=== PATIENT | female | born 1975 | race Caucasian/White ===

== ENCOUNTER 2018-12-03 07:51 | Outpatient (CLI) | payer BC | END 2018-12-03 07:52 | disposition home or self-care (01) | LOC: C.PAT 07:51 | DX: D21.9 Benign neoplasm of connective and other soft tissue, unspecified (principal) ==

== ENCOUNTER 2018-12-19 07:45 | Inpatient (IN) | payer BC ==
[2018-12-03 08:25] VITALS: BMI 27.4
[2018-12-19] MEDS ORDERED: Vasopressin 20 Units/ml Inj ONE (10:32)
[2018-12-19] MEDS ORDERED: ceFAZolin 1 gm in NS 2 GM/200 ML BAG IVPB ONE (10:33)
[2018-12-19] MEDS ORDERED: Midazolam 2 MG/2 ML VIAL ONE (10:37)
[2018-12-19] MEDS ORDERED: Propofol 10 mg/ml Inj (20 ML) ONE (10:37)
[2018-12-19] MEDS ORDERED: Succinylcholine Chloride 20 mg/ml Syr (5 ml) IV ONE (11:57)
[2018-12-19] MEDS ORDERED: Rocuronium 10 mg/ml (5 ml) ONE (11:57)
[2018-12-19] MEDS ORDERED: Lidocaine Hydrochloride 5 ML INJ ONE (11:57)
[2018-12-19] MEDS ORDERED: Neostigmine 1:1000 (1 mg/ml) Inj ONE (12:01)
[2018-12-19] MEDS ORDERED: Oxycodone/Acetaminophen 5/325 mg Tab PO PRN ×2 (12:26)
[2018-12-19] MEDS ORDERED: Lactated Ringer's 1,000 ML IV SCH (12:30)
--- NOTE | 2018-12-19 12:31 | PCM.SURG1 ---
Surgeon's Initial Post Op Note - Surgeon's Notes Surgeon: Rupal Love MD Child Development Director: Dmitry Lopez MD Type of Anesthesia: General Endo Pre-Operative Diagnosis: Pelvic Pain, Sympoamtic fibroids uteurs, pelvic prssure, abnromal uteirne bleeidng, anemia Operative Findings: Enlarged 24 week size enlarged uteurs, with funal myoma with base entering cavity, cesar appearing uteurs, tubes and ovaries, uteurs 8-10 week size. uterus rotated due ot enldraged myoma. no adhesions. geeta drain, vasopressing applied. Dr Tommy Lopez was surigcla assitance was presnt ofr entire case and essential in gaining entry, retraciotn, epxourse, hloidng bladder blade, obtiaign hemotasis, dissection, removal of specin and closing all layers. Post-Operative Diagnosis: same as above Operation Performed: Exploratory laparatomy, abodminla momecotmy Specimen/Specimens Removed: Leiomyoma (multiple) Estimated Blood Loss: EBL {In ML}: 150 Blood Products Given: N/A Drains Used: No Drains Post-Op Condition: Good Date of Surgery/Procedure: 12/19/18 Time of Surgery/Procedure: 11:00
[2018-12-19 13:00] LABS: BASO # 0.1 K/uL (0.0-0.2); BASO % 0.5 % (0.0-2.0); EOS # 0.2 K/uL (0.0-0.7); EOS % 1.7 % (0.0-4.0); LYMPH # 2.6 K/uL (1.0-4.3); LYMPH % 19.1 % (20.0-40.0); MEAN CELL VOLUME 85.3 fL (81.0-99.0); MEAN CORPUSCULAR HEMOGLOBIN 28.3 pg (27.0-31.0); MEAN CORPUSCULAR HGB CONC 33.2 g/dL (33.0-37.0); MEAN PLATELET VOLUME 8.6 fL (7.2-11.7); MONO # 0.4 K/uL (0.0-0.8); MONO % 2.6 % (0.0-10.0); NEUT # 10.4 K/uL (1.8-7.0); NEUT % 76.1 % (50.0-75.0); RBC 4.59 Mil/uL (3.80-5.20); RED CELL DISTRIBUTION WIDTH 15.2 % (11.5-14.5)
[2018-12-19 13:03] LABS: WHITE BLOOD COUNT 13.7 K/uL (4.8-10.8)
[2018-12-19 13:10] LABS: ALB/GLOB RATIO 1.3 (1.0-2.1); ALBUMIN 4.2 g/dL (3.5-5.0); ALT/SGPT 15 U/L (9-52); AST/SGOT 16 U/L (14-36); BLOOD UREA NITROGEN 15 mg/dL (7-17); GFR NON-AFRICAN AMERICAN > 60
[2018-12-19] MEDS: HYDROmorphone 0.5 mg/0.5 ml ISec IVP PRN ×2 (13:14→14:46)
[2018-12-19] MEDS ORDERED: Lactated Ringer's 1,000 ML IV ONE (16:30)
[2018-12-19] MEDS: cefOXitin 1 GM in Sodium Chloride 0.9% 100 ML IVPB SCH (19:00)
[2018-12-20] MEDS: cefOXitin 1 GM in Sodium Chloride 0.9% 100 ML IVPB SCH ×2 (03:00→10:00)
--- NOTE | 2018-12-20 08:03 | CP.PCM.PN ---
Subjective - Date & Time of Evaluation Date of Evaluation: 12/20/18 Time of Evaluation: 08:00 - Subjective Subjective: pt seen and examiend reports pain controlled with medcain, pt out of bed to charir, not yet voiding or ambulating. pt deneis any fver, chills, nause, vomiting, toelrating clears, no vaginal bleeding. Objective - Vital Signs/Intake and Output Vital Signs (last 24 hours): Temp Pulse Resp BP Pulse Ox 99.2 F 93 H 20 116/69 97 12/20/18 04:00 12/20/18 04:00 12/20/18 04:00 12/20/18 04:00 12/20/18 04:00 Intake and Output: 12/20/18 12/20/18 06:59 18:59 Intake Total 1700 Output Total 1000 Balance 700 - Medications Medications: Current Medications Cefoxitin Sodium 1 gm/ Sodium (Chloride) 100 mls @ 100 mls/hr IVPB Q8H [facility]; Protocol Stop: 12/20/18 10:59 Last Admin: 12/20/18 03:00 Dose: 100 mls/hr Lactated Ringer's (Lactated Ringer's) 1,000 mls @ 125 mls/hr IV .Q8H [facility] Last Admin: 12/20/18 03:30 Dose: 125 mls/hr Indomethacin (Indocin) 25 mg PO TID [facility] Last Admin: 12/20/18 05:00 Dose: 25 mg Ondansetron HCl (Zofran Inj) 4 mg IVP ONCE PRN PRN Reason: Nausea/Vomiting Oxycodone/Acetaminophen (Percocet 5/325 Mg Tab) 1 tab PO Q4H PRN PRN Reason: Pain, moderate (4-7) Stop: 12/22/18 12:27 Oxycodone/Acetaminophen (Percocet 5/325 Mg Tab) 2 tab PO Q4H PRN PRN Reason: Pain, severe (8-10) Stop: 12/22/18 12:27 Last Admin: 12/20/18 03:21 Dose: 2 tab - Labs Labs: 12/19/18 12:56 12/19/18 12:56 - Constitutional Appears: Well, Non-toxic - Head Exam Head Exam: ATRAUMATIC, NORMAL INSPECTION - Eye Exam Eye Exam: EOMI - ENT Exam ENT Exam: Mucous Membranes Moist, Normal Exam - Neck Exam Neck Exam: Normal Inspection - Respiratory Exam Respiratory Exam: Clear to Ausculation Bilateral, NORMAL BREATHING PATTERN - Cardiovascular Exam Cardiovascular Exam: REGULAR RHYTHM, +S1, +S2 - GI/Abdominal Exam GI & Abdominal Exam: Soft, Normal Bowel Sounds Additional comments: appropriately ttp, no guarding no reboudn tendneress, no rigidity, +BS no vaginal bleeding inciscion c/d/i - Extremities Exam Extremities Exam: Full ROM, Normal Capillary Refill, Normal Inspection. absent: Calf Tenderness, Joint Swelling, Pedal Edema, Tenderness - Back Exam Back Exam: Full ROM, NORMAL INSPECTION - Psychiatric Exam Psychiatric exam: Normal Affect, Normal Mood - Skin Skin Exam: Dry, Intact, Normal Color, Warm Assessment and Plan (1) S/P myomectomy Assessment & Plan: 1. Pain managment: dc sr solutions consultant-->po indomethacin, percocet prn 2. dc jo 3. Activity out of bed with assistance 4. AM labs 5. Diet; Advance as tolerated: Goals Clear 6. Abdomina binder, incentiev spirometer Status: Acute
[2018-12-20 08:22] LABS: BASO % 0.2 % (0.0-2.0); EOS % 0.2 % (0.0-4.0); HEMOGLOBIN 11.8 g/dL (11.0-16.0); LYMPH # 1.2 K/uL (1.0-4.3); LYMPH % 8.8 % (20.0-40.0); MEAN CELL VOLUME 84.6 fL (81.0-99.0); MEAN CORPUSCULAR HEMOGLOBIN 28.1 pg (27.0-31.0); MEAN CORPUSCULAR HGB CONC 33.2 g/dL (33.0-37.0); MEAN PLATELET VOLUME 8.7 fL (7.2-11.7); MONO # 1.1 K/uL (0.0-0.8); MONO % 8.2 % (0.0-10.0); NEUT # 11.5 K/uL (1.8-7.0); NEUT % 82.6 % (50.0-75.0); PLATELET COUNT 243 K/uL (130-400); RBC 4.22 Mil/uL (3.80-5.20); RED CELL DISTRIBUTION WIDTH 14.7 % (11.5-14.5)
[2018-12-20] MEDS ORDERED: Magnesium Hydroxide Susp 30 ml UD PO PRN (08:28)
--- NOTE | 2018-12-20 08:33 | CP.PCM.DIS ---
Provider - Provider Date of Admission: 12/19/18 08:47 Attending physician: Rupal Love MD Time Spent in preparation of Discharge (in minutes): 30 Diagnosis - Discharge Diagnosis (1) S/P myomectomy Status: Acute Hospital Course - Lab Results Lab Results: Most Recent Lab Values WBC 14.0 K/uL (4.8-10.8) H 12/20/18 08:16 RBC 4.22 Mil/uL (3.80-5.20) 12/20/18 08:16 Hgb 11.8 g/dL (11.0-16.0) 12/20/18 08:16 Hct 35.6 % (34.0-47.0) 12/20/18 08:16 MCV 84.6 fL (81.0-99.0) 12/20/18 08:16 MCH 28.1 pg (27.0-31.0) 12/20/18 08:16 MCHC 33.2 g/dL (33.0-37.0) 12/20/18 08:16 RDW 14.7 % (11.5-14.5) H 12/20/18 08:16 Plt Count 243 K/uL (130-400) 12/20/18 08:16 MPV 8.7 fL (7.2-11.7) 12/20/18 08:16 Neut % (Auto) 82.6 % (50.0-75.0) H 12/20/18 08:16 Lymph % (Auto) 8.8 % (20.0-40.0) L 12/20/18 08:16 [place] % (Auto) 8.2 % (0.0-10.0) 12/20/18 08:16 Eos % (Auto) 0.2 % (0.0-4.0) 12/20/18 08:16 Baso % (Auto) 0.2 % (0.0-2.0) 12/20/18 08:16 Neut # (Auto) 11.5 K/uL (1.8-7.0) H 12/20/18 08:16 Lymph # (Auto) 1.2 K/uL (1.0-4.3) 12/20/18 08:16 [place] # (Auto) 1.1 K/uL (0.0-0.8) H 12/20/18 08:16 Eos # (Auto) 0.0 K/uL (0.0-0.7) 12/20/18 08:16 Baso # (Auto) 0.0 K/uL (0.0-0.2) 12/20/18 08:16 Sodium 138 mmol/L (132-148) 12/19/18 12:56 Potassium 4.2 mmol/L (3.6-5.2) 12/19/18 12:56 Chloride 108 mmol/L (98-107) H 12/19/18 12:56 Carbon Dioxide 20 mmol/L (22-30) L 12/19/18 12:56 Anion Gap 14 (10-20) 12/19/18 12:56 BUN 15 mg/dL (7-17) 12/19/18 12:56 Creatinine 0.7 mg/dL (0.7-1.2) 12/19/18 12:56 Est GFR ( Amer) > 60 12/19/18 12:56 Est GFR (Non-Af Amer) > 60 12/19/18 12:56 Random Glucose 138 mg/dL (65-105) H 12/19/18 12:56 Calcium 9.0 mg/dl (8.6-10.4) 12/19/18 12:56 Total Bilirubin 0.6 mg/dL (0.2-1.3) 12/19/18 12:56 AST 16 U/L (14-36) 12/19/18 12:56 ALT 15 U/L (9-52) 12/19/18 12:56 Alkaline Phosphatase 49 U/L (38-126) 12/19/18 12:56 Total Protein 7.4 g/dL (6.3-8.3) 12/19/18 12:56 Albumin 4.2 g/dL (3.5-5.0) 12/19/18 12:56 Globulin 3.2 gm/dL (2.2-3.9) 12/19/18 12:56 Albumin/Globulin Ratio 1.3 (1.0-2.1) 12/19/18 12:56 Blood Type A POSITIVE 12/19/18 09:42 Antibody Screen Negative 12/19/18 09:42 - Hospital Course Hospital Course: sp abomdinal myoemcotmy cesar post op course Discharge Exam - Head Exam Head Exam: ATRAUMATIC, NORMAL INSPECTION - Eye Exam Eye Exam: Normal appearance - Respiratory Exam Respiratory Exam: Clear to PA & Lateral, NORMAL BREATHING PATTERN, UNREMARKABLE - Cardiovascular Exam Cardiovascular Exam: +S1, +S2 - GI/Abdominal Exam GI & Abdominal Exam: Normal Bowel Sounds, Soft, Tenderness - Rectal Exam Rectal Exam: NORMAL INSPECTION - Back Exam Back exam: NORMAL INSPECTION. absent: CVA tenderness (L), CVA tenderness (R), FULL ROM, muscle spasm, paraspinal tenderness, rash noted, tenderness, vertebral tenderness - Neurological Exam Neurological exam: Alert, CN II-XII Intact, Oriented x3, Reflexes Normal - Psychiatric Exam Psychiatric exam: Normal Affect, Normal Mood - Skin Skin Exam: Dry, Intact, Normal Color, Warm Discharge Plan - Follow Up Plan Condition: GOOD Disposition: HOME/ ROUTINE
[2018-12-20 08:42] VITALS: RESP 18
[2018-12-20 08:44] LABS: ALB/GLOB RATIO 1.3 (1.0-2.1); ALBUMIN 4.1 g/dL (3.5-5.0); ALT/SGPT 8 U/L (9-52); AST/SGOT 26 U/L (14-36); BLOOD UREA NITROGEN 10 mg/dL (7-17); CALCIUM 8.7 mg/dl (8.6-10.4); GFR NON-AFRICAN AMERICAN > 60
[2018-12-20 10:59] LABS: ANISOCYTOSIS SLIGHT; LYMPHOCYTE 12 % (20-40); MONOCYTE 8 % (0-10); NEUTROPHIL 80 % (50-75); OVALOCYTES SLIGHT; PLATELET ESTIMATE NORMAL (NORMAL); POLYCHROMIC SLIGHT; TOTAL CELLS COUNTED 100
[2018-12-20] MEDS: Simethicone 80 mg Chewtab PO SCH ×2 (11:32→17:07)
[2018-12-20 17:09] VITALS: BP 105/65; PULSE 64; TEMP 97; O2SAT 96
--- NOTE | 2018-12-24 08:33 | OP ---
PROCEDURE DATE: 12/19/2018 SURGEON: Rupal Love MD JACK STRIP ASSEMBLER: Dmirty Lopez MD. TYPE OF ANESTHESIA: General endotracheal. PREOPERATIVE DIAGNOSES: Pelvic pain, symptomatic fibroid uterus, pelvic pressure, normal uterine bleeding, anemia. POSTOPERATIVE DIAGNOSES: Pelvic pain, symptomatic fibroid uterus, pelvic pressure, normal uterine bleeding, anemia. OPERATIVE FINDINGS: A large 24-week size multifibroid uterus with fundal myoma entering the fundal base of the uterine cavity. Normal-appearing tubes and ovaries. Uterus is 8-to 10-week size. Uterus rotated due to enlarged myomas. No adhesions. Anayeli drain applied to the fundal part of the myoma. Vasopressin applied. Dr. Dmitry Lopez, fleet administrative assistant, was present for the entire case, essentially in gaining entry, retraction, exposure, helping to hold the bladder blade, attaining hemostasis, dissection, removal of specimen, closing all layers, and was present for the entire case. OPERATION PERFORMED: Exploratory laparotomy, abdominal myomectomy, leiomyomas. ESTIMATED BLOOD LOSS: 150 mL. BLOOD PRODUCTS: None. COMPLICATIONS: None. INDICATION: The patient is a 43-year-old para 0 with increasing symptomatic pelvic pain as above. Risks, benefits, alternatives, and indications were discussed with the patient. DESCRIPTION OF PROCEDURE: The patient was taken to the operating room where she was given general anesthesia. Once it was found to be adequate, the patient was placed on the operating table in dorsal supine position. The patient was prepped and draped in the usual sterile fashion. Time-out confirmed correct patient and correct procedure. Baca catheter was inserted. The patient was given preoperative prophylactic antibiotics. A Pfannenstiel skin incision was made with a scalpel and carried down to the underlying fascia with the Bovie. The fascia was incised in the midline and incision was extended laterally with the Bovie. The inferior aspect of the fascial incision was grasped with Allis and Emily clamps underlying rectus muscles were dissected off bluntly. Following this, the rectus muscles were then bluntly in the midline and an incision was made with the Bovie after ligation of the inferior epigastric artery on both sides to allow for accommodation. Peritoneum was identified in the clear space with the Metzenbaum scissors. After placing 2 hemostats, incision was extended laterally and superiorly until there was good visualization. The myoma was then exteriorized with the uterus. The bladder was identified by the Baca operative finding. Anayeli drain was applied through lower section of the myoma. Vasopressin was applied to the lower uterine segment along the vasculature. Anesthesia was then informed. Bovie was then used to help make an incision and the myoma was carefully removed. There was good hemostasis noted. The top part of the uterine cavity was noted to be entered. The defect was closed using 2-0 Vicryl in two layers. The was then closed with a 4-0 Monocryl in a running subcuticular fashion using baseball stitch. There was good hemostasis noted. The uterus was then rotated in a normal position. Normal tubes and ovaries. The uterus was then returned to the abdomen. The pericolic gutters were cleared of all clots and debris. There was good hemostasis noted. The uterus returned in the abdomen. The peritoneum was reapproximated and closed with 2-0 chromic in a running continuous fashion. The rectus was reapproximated, closed on each of the incision sites to help with exposure using the Maylard incision using 2-0 chromic. Rectus reapproximated in layers with 2-0 chromic in interrupted fashion. The fascia was reapproximated and closed with 0-Vicryl in a running continuous fashion. Subcutaneous space was closed with 2-0 plain in interrupted manner. Skin was reapproximated and closed with 4-0 Monocryl in running subcuticular fashion. At the end of the procedure, all needle, sponge, and instrument counts were noted to be correct x2. The patient tolerated the procedure well and was transferred to recovery room in stable condition. Rupal Love MD
== END 2018-12-20 18:00 | disposition home or self-care (01) | DRG 743 ==
LOC: C.9S 08:47 → C.4M 18:54
PROVIDERS: ADMIT Obstetrics & Gynecology; ATTEND Obstetrics & Gynecology
PROC: 0UB90ZZ Excision of Uterus, Open Approach (ICD-10-PCS; principal; 2018-12-19 10:15)
DX: D25.9 Leiomyoma of uterus, unspecified (principal); D64.9 Anemia, unspecified